=== PATIENT | female | born 1980 | race Hispanic/Latino ===

== ENCOUNTER 2021-11-17 17:07 | Emergency (ER) | payer SELFPAY ==
[~2021-11-17] VITALS: Ht 167.6 cm; Wt 90.0 kg
[2021-11-17 17:53] VITALS: BP 146/92
[2021-11-17 18:00] VITALS: BP 121/79
[2021-11-17] MEDS ORDERED: NAPROXEN500 MG PO (18:50)
[2021-11-17] MEDS ORDERED: FLEXERIL5 M1 PO (18:50)
[2021-11-17 18:56] VITALS: BP 121/79
== END 2021-11-17 19:01 | disposition home or self-care (01) | DRG 556 ==
LOC: ED 17:07
DX: M25.511 Pain in right shoulder (principal)